=== PATIENT | female | born 2000 | race Caucasian/White ===

== ENCOUNTER 2023-05-10 11:14 | Emergency (ER) | payer OTHER, SELFPAY ==
[2023-05-10 11:18] VITALS: BP 124/78
--- NOTE | 2023-05-10 11:58 | ED.GENMED ---
History of Present Illness
<Deborah Rodriguez PA-C - Last Filed: 05/10/23 16:58>
General
Chief Complaint: Flank Pain
Source: patient and family
Exam Limitations: none
Time Seen by Provider: 05/10/23 11:53
Nursing documentation reviewed up to this point in time: agreed with
Travel History
Have you had any contact with someone who has COVID-19?: No
Do you have any symptoms of coronavirus? Fever > 100 degrees, chills, cough, shortness of breath, sore throat, loss of taste or smell, muscle aches, or headache?: No
History of Present Illness
History of Present Illness:
This is a 23-year-old female with a past medical history of asthma presenting emergency department today with right-sided flank pain, right-sided abdominal pain, and urinary retention since this morning. Patient states that when she woke up this
morning, she first noticed the pain. She states that the pain is worse with movement. She saw urgent care this morning who diagnosed her with a UTI and gave her a dose of Cipro and Toradol. However, they wanted her to report to the emergency
department for evaluation of potential kidney stone. She states that the flank pain radiates to her abdomen. Patient states that she has a strong family history of kidney stones. Patient denies hematuria, dysuria. She denies fevers at home.
Patient's last menstrual period was 2 weeks ago. Patient denies any vomiting, diarrhea, constipation. Patient has had an appendectomy in the past, but does have her gallbladder. Patient denies history of any other abdominal surgeries.
Past History
<Deborah Rodriguez PA-C - Last Filed: 05/10/23 16:58>
Past History
ED Past Medical History: None
ED Past Surgical History: None
Social History
Tobacco: Non-smoker
Review of Systems
<Deborah Rodriguez PA-C - Last Filed: 05/10/23 16:58>
Review of Systems
All Other Systems: ROS reviewed and negative except as documented in HPI and ROS
Phy Exam
<Deborah Rodriguez PA-C - Last Filed: 05/10/23 16:58>
Physical Exam
Physical Exam:
Vitals: Vital signs are stable
General: Patient is well-appearing in no acute distress
Skin: Skin is warm dry, no rashes or lesions
Cardiac: Regular rate and rhythm, no murmurs
Pulm: Normal respiratory effort, no wheezes, rales, rhonchi
Abdomen: Mild right upper quadrant abdominal tenderness. Positive CVA tenderness on the right. No abdominal distention, no organomegaly. No rebound tenderness.
Neuro: Patient is awake and alert, cranial nerves II through XII intact.
Course
<Deborah Rodriguez PA-C - Last Filed: 05/10/23 16:58>
Orders/Labs/Results
Orders:
Orders
05/10/23 12:38
0.9% Sodium Chloride 1000 ml [Nss] 1,000 ml IV BOLUS
Ondansetron Injectable [Zofran] 4 mg IV NOW STA
Test Result ONCE
05/10/23 12:39
CT Abd/pel Without Iv Or Oral Urgent
Comment:
Reason For Exam: right flank pain
05/10/23 12:42
Add On- LAB Urgent
Tests Added?: hcg
05/10/23 12:44
Complete Blood Count/With Diff Urgent
Comprehensive Metabolic Panel Urgent
05/10/23 12:48
Urinalysis Reflex To Culture Urgent
Date Specimen was Collected: 05/10/23
Time Specimen was Collected: 12:44
Urine Microscopic Reflex Cult Urgent
Urine,Hcg qualitative screen [HCG, Urine Qualitative Screen] Urgent
Date Specimen was Collected: 05/10/23
Time Specimen was Collected: 12:44
Urine Culture Urgent
NISHI Source: U
Specimen Description:
Date Specimen was Collected: 05/10/23
Time Specimen was Collected: 12:44
05/10/23 15:02
Urinalysis Reflex To Culture Urgent
Date Specimen was Collected: 05/10/23
Time Specimen was Collected: 14:52
Urine Microscopic Reflex Cult Urgent
Urine Culture Urgent
NISHI Source: U
Specimen Description:
Date Specimen was Collected: 05/10/23
Time Specimen was Collected: 14:52
Abnormal Lab Results
05/10/23 05/10/23 05/10/23
12:44 12:48 15:02
WBC 11.5 H 10^3/uL
(4.8-10.8)
Abs Immat Gran (auto) 0.1 H 10^3/uL
(0-0.05)
Absolute Neuts (auto) 9.1 H 10^3/uL
(1.4-6.5)
Neutrophils % 79.6 H %
(42.2-75.2)
Lymphocytes % 14.0 L %
(20.5-51.1)
Total Bilirubin 2.1 H mg/dl
(0.2-1.3)
Ur Occult Blood Reflex 2+ A
(Negative)
Urine Nitrite (Reflex) Positive A Positive A
(Negative) (Negative)
Urine Bilirubin 1+ A 3+ A
(Negative) (Negative)
Urine Urobilinogen 4+ A
(Neg - 1+)
Leukocyte Esterase Rfl 2+ A 2+ A
(Negative) (Negative)
Urine RBC 70-80 A /HPF
(0-2)
Urine WBC (Reflex) 16-20 A /HPF 11-15 A /HPF
(0-5) (0-5)
Urine Bacteria (Reflex) Moderate A
(Negative)
Urine Yeast Moderate A
(Negative)
05/10/23 12:44
05/10/23 12:44
Vital Signs
Initial and Last Documented VS:
Initial Vital Signs
Temp Pulse Resp BP Pulse Ox
98.1 F 66 18 124/78 99
05/10/23 11:18 05/10/23 11:18 05/10/23 11:18 05/10/23 11:18 05/10/23 11:18
Last Documented Vital Signs
Temp Pulse Resp BP Pulse Ox
98.1 F 66 18 100/60 99
05/10/23 11:18 05/10/23 11:18 05/10/23 11:18 05/10/23 13:00 05/10/23 13:30
<Michael Magallon MD - Last Filed: 05/11/23 10:10>
Orders/Labs/Results
Orders:
Orders
05/10/23 12:38
0.9% Sodium Chloride 1000 ml [Nss] 1,000 ml IV BOLUS
Ondansetron Injectable [Zofran] 4 mg IV NOW STA
Test Result ONCE
05/10/23 12:39
CT Abd/pel Without Iv Or Oral Urgent
Comment:
Reason For Exam: right flank pain
05/10/23 12:42
Add On- LAB Urgent
Tests Added?: hcg
05/10/23 12:44
Complete Blood Count/With Diff Urgent
Comprehensive Metabolic Panel Urgent
05/10/23 12:48
Urinalysis Reflex To Culture Urgent
Date Specimen was Collected: 05/10/23
Time Specimen was Collected: 12:44
Urine Microscopic Reflex Cult Urgent
Urine,Hcg qualitative screen [HCG, Urine Qualitative Screen] Urgent
Date Specimen was Collected: 05/10/23
Time Specimen was Collected: 12:44
Urine Culture Urgent
NISHI Source: U
Specimen Description:
Date Specimen was Collected: 05/10/23
Time Specimen was Collected: 12:44
05/10/23 15:02
Urinalysis Reflex To Culture Urgent
Date Specimen was Collected: 05/10/23
Time Specimen was Collected: 14:52
Urine Microscopic Reflex Cult Urgent
Urine Culture Urgent
NISHI Source: U
Specimen Description:
Date Specimen was Collected: 05/10/23
Time Specimen was Collected: 14:52
Abnormal Lab Results
05/10/23 05/10/23 05/10/23
12:44 12:48 15:02
WBC 11.5 H 10^3/uL
(4.8-10.8)
Abs Immat Gran (auto) 0.1 H 10^3/uL
(0-0.05)
Absolute Neuts (auto) 9.1 H 10^3/uL
(1.4-6.5)
Neutrophils % 79.6 H %
(42.2-75.2)
Lymphocytes % 14.0 L %
(20.5-51.1)
Total Bilirubin 2.1 H mg/dl
(0.2-1.3)
Ur Occult Blood Reflex 2+ A
(Negative)
Urine Nitrite (Reflex) Positive A Positive A
(Negative) (Negative)
Urine Bilirubin 1+ A 3+ A
(Negative) (Negative)
Urine Urobilinogen 4+ A
(Neg - 1+)
Leukocyte Esterase Rfl 2+ A 2+ A
(Negative) (Negative)
Urine RBC 70-80 A /HPF
(0-2)
Urine WBC (Reflex) 16-20 A /HPF 11-15 A /HPF
(0-5) (0-5)
Urine Bacteria (Reflex) Moderate A
(Negative)
Urine Yeast Moderate A
(Negative)
05/10/23 12:44
05/10/23 12:44
Vital Signs
Initial and Last Documented VS:
Initial Vital Signs
Temp Pulse Resp BP Pulse Ox
98.1 F 66 18 124/78 99
05/10/23 11:18 05/10/23 11:18 05/10/23 11:18 05/10/23 11:18 05/10/23 11:18
Last Documented Vital Signs
Temp Pulse Resp BP Pulse Ox
98.1 F 66 18 100/60 99
05/10/23 11:18 05/10/23 11:18 05/10/23 11:18 05/10/23 13:00 05/10/23 13:30
<WONG Reddy Last Filed: 05/10/23 16:58>
MDM/Problems Addressed
Differential Diagnosis Includes:
Differentials include pyelonephritis, nephrolithiasis, cholecystitis, acute cystitis
MDM/Problems Addressed:
Flank pain
Urinary retention

Will obtain CT abdomen pelvis without IV contrast, start IV fluids, Zofran, CBC, CMP, urine
Chronic conditions affecting care: Asthma
Acute Exacerbation and/or Progression of Chronic Illness:
n/a
<WONG Reddy Last Filed: 05/10/23 16:58>
*Pulse Oximetry
Patient hypoxic: no
*Critical Care Note
Total Time (30-74mins, 75-104mins- exclusive of procedures): Not Applicable
Data Reviewed
Review of Other/Old Records Reveals: Records (Reviewed ER physician documentation from 09/04/2020, reviewed ER physician at [facility] from 02/27/2014) and Discharge Summary (No recent hospitalizations)
Source: patient
Prescriptions/Medications Considered But Not Given:
Considered Toradol however patient received this at 11:15 am today, consider other pain control however is comfortable at this time.
<WONG Reddy Last Filed: 05/10/23 16:58>
Patient Management
Escalation/DeEscalation of care consider admission/obs:
23-year-old female with a past medical history of appendicitis, asthma presenting to the emergency department today with urinary urgency and right-sided flank pain x 1 day. She has never had anything like this before. She has a significant family
history of kidney stones. On exam, she has right-sided CVA tenderness, no abdominal tenderness. She was originally seen by urgent care and given a dose of Cipro, however sent here for evaluation of kidney stone. Her urinalysis reveals urinary
tract infection, and her CT revealed a 2 mm calcification at the right UVJ. Patient is well-appearing and afebrile. Spoke to Dr. Ross on-call via [facility] text, who, considering she is a well-appearing, recommends discharge with Flomax for trial
of passage, as well as antibiotic. Patient will call his office for an appointment on Friday. Patient will return emergency department for any concerns. Mom present with daughter who has a history of kidney stones, and is concerned that daughter
will have severe pain as the stone passes. Mom and daughter requesting something stronger for breakthrough pain should she need it as the stone passes. Urgent care sent patient home with some Toradol tablets. I advised patient to try to use her
Toradol for pain, and I said to send patient home with a few oxycodone tablets to only use for breakthrough pain, should her pain become severe. Discussed pros and cons of opioid medication, patient aware of risks, patient will only used if
necessary. Patient stable for discharge.
ED Attending Note
<Deborah Rodriguez PA-C - Last Filed: 05/10/23 16:58>
-
Portions of this chart may have been created with voice recognition software.� Occasional wrong word or��sound alike� substitutions may have occurred due to the inherent limitations of voice recognition software.
<Michael Magallon MD - Last Filed: 05/11/23 10:10>
ED Attending Note
Patient seen and examined by attending physician: Yes
ED Attending Note:
Patient presents to ED secondary to sudden onset of right flank pain along with urinary frequency starting this morning. Denies fever or chills. Denies vomiting. Denies trauma. Denies inability urinate. Denies dysuria. There is family history
of kidney stones, but patient herself has never had similar symptoms. Patient was evaluated urgent care center, where she was diagnosed with possible UTI, and was prescribed ciprofloxacin along with Toradol. Patient has taken Toradol tablet prior
to arrival, with mild relief in symptoms.
Physical Exam
General: no apparent distress, not acutely ill. afebrile
Head: nc/at. eomi
Neck: supple. no meningeal signs.
Abdomen: normal bowel sounds. not tender.
Neuro: alert and oriented. no focal neurological deficits
Skin: no rash
Psychiatric: well kept. interactive and cooperative
Extremities: no edema. no calf tenderness.
Pt states that her pain is tolerable at this point, after taking toradol tablet prior to arrival.
CT abd/pel report reviewed. Awaiting UA. Will speak with urology afterwards and determine appropriate disposition.
Discharge Plan
Departure
Patient Disposition: Home (Routine Discharge)
Date of Disposition: 05/10/23
Time of Disposition: 16:34
Patient with high blood pressure during this ER visit?: No
Condition: Good
Discharge Problem:
Kidney stone on right side
Instructions: Kidney Stones (DC), How to Strain Your Urine
Prescriptions:
New
ciprofloxacin HCl 500 mg tablet
500 mg PO BID Qty: 4 0RF
tamsulosin [Flomax] 0.4 mg capsule
0.4 mg PO DAILY Qty: 4 0RF
oxycodone 5 mg capsule
5 mg PO Q6H PRN (Reason: Pain) Qty: 5 0RF
No Action
cetirizine 10 MG tablet
10 mg PO DAILY
Referrals:
Jorge Cullen MD [Active] - Call in 1-3 days for appt
UNKNOWN - PT DOES,NOT KNOW [Family Provider] -
Activity Restrictions/Additional Instructions:
Please continue your ciprofloxacin per urgent care instructions. Please take 1 tablet every 12 hours for total of 5 days.
We have sent a medication called [employer] for pharmacy. Please take 1 tablet once daily until stone passage, please strain your urine.
Please use your Toradol from urgent care for pain control. For breakthrough pain, you may take 1 oxycodone tablet every 6 hours as needed for pain. PLEASE RESERVE THIS FOR SEVERE PAIN.
Please call urology on Friday for a follow up appointment.
Please return to the emergency department for any concerns.
Interventions
Interventions:
*Risk Screen - Suicide Last Done: 05/10/23 12:39
*General Assessment Last Done: 05/10/23 12:39
*Neglect/Abuse Screening Last Done: 05/10/23 12:39
ED- Fall Risk Assessment Last Done: 05/10/23 12:39
*ED COVID-19 Vaccine History Last Done: 05/10/23 12:39
*Nursing Disposition Last Done: 05/10/23 16:44
BW-Elhdtb-Onaejdnmnw Assessment Last Done: 05/10/23 12:39
ED-Female Genitourinary Assessment Last Done: 05/10/23 12:39
Discharge Date and Time
Discharge Date/Time: 05/10/23 16:45
[2023-05-10 12:39] VITALS: BMI 25.6
[2023-05-10 12:43] VITALS: BP 91/65
[2023-05-10] MEDS: ZOFRAN 4 MG IV (12:46)
[2023-05-10] MEDS: NSS 1000 IV (12:47)
[2023-05-10 12:52] LABS: % Basophils 0.8 % (0-2); % Eosinophils 1.2 % (0-6); % Immature Granulocytes 0.4 % (0-0.5); % Neutrophils 79.6 % (42.2-75.2); Absolute Basophils 0.1 10^3/uL (0-0.2); Absolute Eosinophils 0.1 10^3/uL (0-0.7); Absolute Immature Granulocytes 0.1 10^3/uL (0-0.05); Absolute Lymphocytes 1.6 10^3/uL (1.2-3.4); Absolute Monocytes 0.5 10^3/uL (0.1-0.6); Absolute Neutrophils 9.1 10^3/uL (1.4-6.5); Hematocrit 41.2 % (37.0-47.0); Hemoglobin 14.2 g/dL (12.0-16.0); Mean Corp Hgb Conc. 34.5 g/dL (33.0-37.0); Mean Corpuscular Volume 81.1 fL (81.0-99.0); Mean Platelet Volume 10.2 fL (7.4-10.4); Nucleated Red Blood Cells % 0 %; Platelet Count 321 10^3/uL (130-400); Red Blood Cell Count 5.08 10^6/uL (4.20-5.40); Red Cell Dist. Width 12.2 % (11.5-14.5); White Blood Cell Count 11.5 10^3/uL (4.8-10.8)
[2023-05-10 13:00] VITALS: BP 100/60
[2023-05-10 13:04] LABS: Urine Albumin Trace (Neg - Trace); Urine Bilirubin 1+ (Negative); Urine Character Slightly Cloudy (Clear); Urine Color Amber; Urine Glucose Negative (Negative); Urine Ketone Negative (Negative); Urine Leukocyte 2+ (Negative); Urine Nitrite Positive (Negative); Urine Occult Blood 2+ (Negative); Urine Specific Gravity 1.015 (<1.030); Urine Urobilinogen 1+ (Neg - 1+)
[2023-05-10 13:05] LABS: ALT (SGPT) 22 U/L (0-35); AST (SGOT) 24 U/L (14-36); Albumin 4.9 g/dl (3.5-5.0); Alkaline Phosphatase 65 U/L (38-126); Blood Urea Nitrogen 15 mg/dl (7-17); Calcium 9.7 mg/dl (8.4-10.2); Carbon Dioxide 23 mmol/L (22-30); Chloride 107 mmol/L (98-107); Estimated Creatinine Clearance 115 ml/min; Glucose 98 mg/dl (70-99); Sodium 138 mmol/L (135-145); Total Bilirubin 2.1 mg/dl (0.2-1.3); Total Protein 7.9 g/dl (6.3-8.2); eGFR > 60.00
[2023-05-10 13:08] LABS: HCG, Urine Qualitative Screen Negative
[2023-05-10 13:37] LABS: Urine Mucus Few; Urine Squamous Cell >30 /LPF (Few)
[2023-05-10 13:38] LABS: Urine Bacteria Moderate (Negative); Urine Red Blood Cell 70-80 /HPF (0-2); Urine White Cell 16-20 /HPF (0-5); Urine Yeast Moderate (Negative)
[2023-05-10 15:14] LABS: Urine Albumin Negative (Neg - Trace); Urine Bilirubin 3+ (Negative); Urine Character Clear (Clear); Urine Glucose Negative (Negative); Urine Ketone Negative (Negative); Urine Leukocyte 2+ (Negative); Urine Nitrite Positive (Negative); Urine Occult Blood Negative (Negative); Urine Urobilinogen 4+ (Neg - 1+)
[2023-05-10 15:16] LABS: Urine Color Orange
[2023-05-10 15:39] LABS: Urine Squamous Cell 16-20 /LPF (Few)
[2023-05-10 15:40] LABS: Urine Red Blood Cell 0-2 /HPF (0-2)
== END 2023-05-10 16:45 | disposition home or self-care (01) ==
LOC: EMR 11:14
PROVIDERS: Physician Assistant; EMERGENCY PHYSICIAN Emergency Medicine
DX: N20.0 Calculus of kidney (principal); J45.909 Unspecified asthma, uncomplicated; Z90.49 Acquired absence of other specified parts of digestive tract
CPT/HCPCS: 99284; 96374; 96361; 74176; 80053; 81003; 81015; 81025; 85025; 87086

== ENCOUNTER 2023-05-11 12:15 | Inpatient (IN) | payer OTHER, SELFPAY ==
[2023-05-11] MEDS: DILAUDID 0.5 MG IV ×3 (09:08→17:18)
[2023-05-11] MEDS: NSS 1000 IV (09:09)
[2023-05-11] MEDS: ZOFRAN 4 MG IV ×2 (09:09→10:56)
[2023-05-11 09:29] LABS: % Basophils 0.3 % (0-2); % Eosinophils 0.1 % (0-6); % Immature Granulocytes 0.4 % (0-0.5); % Lymphocytes 7.1 % (20.5-51.1); % Monocytes 3.5 % (1.7-9.3); % Neutrophils 88.6 % (42.2-75.2); Absolute Basophils 0.1 10^3/uL (0-0.2); Absolute Immature Granulocytes 0.1 10^3/uL (0-0.05); Absolute Lymphocytes 1.1 10^3/uL (1.2-3.4); Absolute Monocytes 0.5 10^3/uL (0.1-0.6); Absolute Neutrophils 13.4 10^3/uL (1.4-6.5); Hematocrit 38.4 % (37.0-47.0); Hemoglobin 13.2 g/dL (12.0-16.0); Mean Corp Hgb Conc. 34.4 g/dL (33.0-37.0); Mean Corpuscular Hgb 28.1 pg (27.0-31.0); Mean Corpuscular Volume 81.7 fL (81.0-99.0); Mean Platelet Volume 10.5 fL (7.4-10.4); Nucleated Red Blood Cells % 0 %; Platelet Count 305 10^3/uL (130-400); White Blood Cell Count 15.1 10^3/uL (4.8-10.8)
[2023-05-11 09:32] LABS: Urine Albumin Trace (Neg - Trace); Urine Bilirubin 3+ (Negative); Urine Character Clear (Clear); Urine Glucose Negative (Negative); Urine Ketone Negative (Negative); Urine Leukocyte 2+ (Negative); Urine Nitrite Positive (Negative); Urine Occult Blood 1+ (Negative); Urine Specific Gravity 1.025 (<1.030); Urine Urobilinogen 4+ (Neg - 1+)
[2023-05-11 09:37] LABS: Urine Color Orange
[2023-05-11 09:40] LABS: Urine Bacteria Moderate (Negative); Urine Squamous Cell >30 /LPF (Few); Urine White Cell 21-25 /HPF (0-5)
[2023-05-11 09:41] LABS: ALT (SGPT) 22 U/L (0-35); AST (SGOT) 26 U/L (14-36); Albumin 4.7 g/dl (3.5-5.0); Alkaline Phosphatase 61 U/L (38-126); Blood Urea Nitrogen 18 mg/dl (7-17); Calcium 9.5 mg/dl (8.4-10.2); Carbon Dioxide 22 mmol/L (22-30); Chloride 107 mmol/L (98-107); Glucose 115 mg/dl (70-99); Potassium 4.3 mmol/L (3.5-5.1); Sodium 136 mmol/L (135-145); Total Bilirubin 2.3 mg/dl (0.2-1.3); Total Protein 7.5 g/dl (6.3-8.2); eGFR > 60.00
[2023-05-11 09:41] LABS: Urine Yeast Few (Negative)
--- NOTE | 2023-05-11 09:45 | ED.GENMED ---
History of Present Illness
<Ashleigh Jose PA-C - Last Filed: 05/11/23 10:17>
General
Chief Complaint: Flank Pain
Source: patient
Exam Limitations: none
Time Seen by Provider: 05/11/23 08:57
Nursing documentation reviewed up to this point in time: agreed with
History of Present Illness
History of Present Illness:
23-year-old female with no significant past medical history presents for right flank pain
sudden onset of right sided pain with dysuria and frequency and urgency yesterday
went to and was told she had UTI, but told to come to ED for eval because of pain.� she got oral toradol and cipro from urgent care
here she had labs showing cr normal, ua nitrite pos but contaminated, CT showed distal 2 mm right UVJ stone
pt went home with oral oxycodone, flomax
she took 3 total cipro, 2 doses of toradol, 2 doses of oxy (4amd and 530am) and pain is not controlled
she also used pyridium and flomax
pt has had some chlils and nauesa
no vomiting.�
pain 11/17
<Michael Magallon MD - Last Filed: 05/11/23 10:23>
Travel History
Have you had any contact with someone who has COVID-19?: No
Do you have any symptoms of coronavirus? Fever > 100 degrees, chills, cough, shortness of breath, sore throat, loss of taste or smell, muscle aches, or headache?: No
<Michael Magallon MD - Last Filed: 05/11/23 10:23>
Past History
ED Past Medical History: None
ED Past Surgical History: None
Social History
Tobacco: Non-smoker
Review of Systems
<Ashleigh Jose PA-C - Last Filed: 05/11/23 10:17>
Review of Systems
Allergies reviewed?: Yes
All Other Systems: Not applicable
Phy Exam
<Ashleigh Jose PA-C - Last Filed: 05/11/23 10:17>
Physical Exam
Physical Exam:
GENERAL: Alert, uncomfortable
Neck: supple
CARDIAC: Regular rate and rhythm .
LUNGS: Clear breath sounds bilaterally, no acute respiratory distress, no wheezes/rales/rhonchi
ABDOMEN: Soft, normal bowel sounds, nondistended, mild RLQ tenderness, no guarding, no rebound, neg mills's
No right CVA tenderness
NEUROLOGICAL: Alert and oriented, no focal neuro deficits
SKIN: Warm and dry, skin intact.
PSYCH: Normal and appropriate interaction.
Course
<Ashleigh Jose PA-C - Last Filed: 05/11/23 10:17>
Orders/Labs/Results
Orders:
Orders
05/11/23 08:58
HYDROmorphone [Dilaudid] 1 mg .ROUTE .STK-MED ONE
05/11/23 08:59
Ondansetron Injectable [Zofran] 4 mg .ROUTE .STK-MED ONE
05/11/23 09:05
Ondansetron Injectable [Zofran] 4 mg IV NOW STA
05/11/23 09:06
HYDROmorphone [Dilaudid] 0.5 mg IV NOW STA
05/11/23 09:07
0.9% Sodium Chloride 1000 ml [Nss] 1,000 ml IV BOLUS
05/11/23 09:17
Urinalysis Reflex To Culture Urgent
Date Specimen was Collected: 05/11/23
Time Specimen was Collected: 09:14
Urine Microscopic Reflex Cult Urgent
Urine Culture Urgent
NISHI Source: U
Specimen Description:
Date Specimen was Collected: 05/11/23
Time Specimen was Collected: 09:14
05/11/23 09:19
Complete Blood Count/With Diff Urgent
Comprehensive Metabolic Panel Urgent
05/11/23 09:30
CefTRIAXone [Rocephin] 1,000 mg IV NOW STA
05/11/23 09:46
Ketorolac [Toradol] 15 mg IV NOW STA
05/11/23 09:47
Gentamicin 100 mg/50 ml [Gentamicin] 100 mg in 50 ml IV NOW
05/11/23 09:52
HYDROmorphone [Dilaudid] 0.5 mg IV NOW STA
Abnormal Lab Results
05/11/23 05/11/23
09:17 09:19
WBC 15.1 H 10^3/uL
(4.8-10.8)
MPV 10.5 H fL
(7.4-10.4)
Abs Immat Gran (auto) 0.1 H 10^3/uL
(0-0.05)
Absolute Neuts (auto) 13.4 H 10^3/uL
(1.4-6.5)
Absolute Lymphs (auto) 1.1 L 10^3/uL
(1.2-3.4)
Neutrophils % 88.6 H %
(42.2-75.2)
Lymphocytes % 7.1 L %
(20.5-51.1)
BUN 18 H mg/dl
(7-17)
Creatinine 1.1 H mg/dL
(0.6-1.0)
Glucose 115 H mg/dl
(70-99)
Total Bilirubin 2.3 H mg/dl
(0.2-1.3)
Ur Occult Blood Reflex 1+ A
(Negative)
Urine Nitrite (Reflex) Positive A
(Negative)
Urine Bilirubin 3+ A
(Negative)
Urine Urobilinogen 4+ A
(Neg - 1+)
Leukocyte Esterase Rfl 2+ A
(Negative)
Urine RBC 3-6 A /HPF
(0-2)
Urine WBC (Reflex) 21-25 A /HPF
(0-5)
Urine Bacteria (Reflex) Moderate A
(Negative)
Urine Yeast Few A
(Negative)
05/11/23 09:19
05/11/23 09:19
Vital Signs
Initial and Last Documented VS:
Initial Vital Signs
Temp Pulse Resp BP Pulse Ox
98.2 F 70 16 128/87 97
05/11/23 08:18 05/11/23 08:18 05/11/23 08:18 05/11/23 08:18 05/11/23 08:18
Last Documented Vital Signs
Temp Pulse Resp BP Pulse Ox
98.2 F 70 16 128/87 97
05/11/23 08:18 05/11/23 08:18 05/11/23 08:18 05/11/23 08:18 05/11/23 08:18
<Michael Magallon MD - Last Filed: 05/11/23 10:23>
Orders/Labs/Results
Orders:
Orders
05/11/23 08:58
HYDROmorphone [Dilaudid] 1 mg .ROUTE .STK-MED ONE
05/11/23 08:59
Ondansetron Injectable [Zofran] 4 mg .ROUTE .STK-MED ONE
05/11/23 09:05
Ondansetron Injectable [Zofran] 4 mg IV NOW STA
05/11/23 09:06
HYDROmorphone [Dilaudid] 0.5 mg IV NOW STA
05/11/23 09:07
0.9% Sodium Chloride 1000 ml [Nss] 1,000 ml IV BOLUS
05/11/23 09:17
Urinalysis Reflex To Culture Urgent
Date Specimen was Collected: 05/11/23
Time Specimen was Collected: 09:14
Urine Microscopic Reflex Cult Urgent
Urine Culture Urgent
NISHI Source: U
Specimen Description:
Date Specimen was Collected: 05/11/23
Time Specimen was Collected: :14
05/11/23 09:19
Complete Blood Count/With Diff Urgent
Comprehensive Metabolic Panel Urgent
05/11/23 09:30
CefTRIAXone [Rocephin] 1,000 mg IV NOW STA
05/11/23 09:46
Ketorolac [Toradol] 15 mg IV NOW STA
05/11/23 09:47
Gentamicin 100 mg/50 ml [Gentamicin] 100 mg in 50 ml IV NOW
05/11/23 09:52
HYDROmorphone [Dilaudid] 0.5 mg IV NOW STA
Abnormal Lab Results
05/11/23 05/11/23
09:17 09:19
WBC 15.1 H 10^3/uL
(4.8-10.8)
MPV 10.5 H fL
(7.4-10.4)
Abs Immat Gran (auto) 0.1 H 10^3/uL
(0-0.05)
Absolute Neuts (auto) 13.4 H 10^3/uL
(1.4-6.5)
Absolute Lymphs (auto) 1.1 L 10^3/uL
(1.2-3.4)
Neutrophils % 88.6 H %
(42.2-75.2)
Lymphocytes % 7.1 L %
(20.5-51.1)
BUN 18 H mg/dl
(7-17)
Creatinine 1.1 H mg/dL
(0.6-1.0)
Glucose 115 H mg/dl
(70-99)
Total Bilirubin 2.3 H mg/dl
(0.2-1.3)
Ur Occult Blood Reflex 1+ A
(Negative)
Urine Nitrite (Reflex) Positive A
(Negative)
Urine Bilirubin 3+ A
(Negative)
Urine Urobilinogen 4+ A
(Neg - 1+)
Leukocyte Esterase Rfl 2+ A
(Negative)
Urine RBC 3-6 A /HPF
(0-2)
Urine WBC (Reflex) 21-25 A /HPF
(0-5)
Urine Bacteria (Reflex) Moderate A
(Negative)
Urine Yeast Few A
(Negative)
05/11/23 09:19
05/11/23 09:19
Vital Signs
Initial and Last Documented VS:
Initial Vital Signs
Temp Pulse Resp BP Pulse Ox
98.2 F 70 16 128/87 97
05/11/23 08:18 05/11/23 08:18 05/11/23 08:18 05/11/23 08:18 05/11/23 08:18
Last Documented Vital Signs
Temp Pulse Resp BP Pulse Ox
98.2 F 70 16 128/87 97
05/11/23 08:18 05/11/23 08:18 05/11/23 08:18 05/11/23 08:18 05/11/23 08:18
<Ashleigh Jose PA-C - Last Filed: 05/11/23 10:17>
MDM/Problems Addressed
Differential Diagnosis Includes:
Kidney stone, intractable pain, bilateral
MDM/Problems Addressed:
23-year-old female presents for the second time in 2 days for a right-sided kidney stone, 2 mm but patient is also having urinary tract infection symptoms, had a nitrate positive urine, subjective fevers and chills overnight. Patient's pain is not
controlled with Toradol, Pyridium and oxycodone.
On exam she has a temperature of 99, she looks nontoxic, she is mildly uncomfortable but nontender, her white count went up to 15 with a left shift, her creatinine went from 1.7-1.1
This case was discussed with the urologist who is aware of her yesterday.
His recommendation was to admit, take the patient to the OR for stent and possible stone extraction as well as keep her overnight for IV antibiotics. This was discussed with both patient and mom, mom had previously requested a different urologist
for herself than Dr. Demarco. but the patient is completely agreeable to keeping Dr. Demarco as her treating urologist today. She is agreeable to stay for the procedure. Dr. demarco recommended an IV dose of gentamicin and he will likely take her to
the operating room within the next couple of hours. Patient required 2 doses of Dilaudid for pain control
<Ashleigh Jose PA-C - Last Filed: 05/11/23 10:17>
*Critical Care Note
Total Time (30-74mins, 75-104mins- exclusive of procedures): Not Applicable
<Michael Magallon MD - Last Filed: 05/11/23 10:23>
ED Attending Note
Patient seen and examined by attending physician: Yes
ED Attending Note:
Patient patient evaluated in ED yesterday and discharged home with diagnosis of obstructing renal stone along with UTI, returns to ED secondary to worsening pain despite taking her medication at home. Denies fever or chills. Reports nausea
sensation without vomiting. Denies trauma. Denies inability to urinate, but reports urinary frequency.
Physical Exam
General: mild painful distress, not acutely ill. afebrile
Head: nc/at. eomi
Neck: supple. no meningeal signs.
Heart: s1/s2 regular rate and rhythm, no murmur. equal radial pulses.
Lungs: no acute respiratory distress. clear bilaterally
Abdomen: normal bowel sounds. not tender.
Neuro: alert and oriented. no focal neurological deficits
Skin: no rash
Psychiatric: well kept. interactive and cooperative
Extremities: no edema. no calf tenderness.
Discussed with (urology) - will proceed to OR. Pt remains hemodynamically stable during observation.
-
Portions of this chart may have been created with voice recognition software.� Occasional wrong word or��sound alike� substitutions may have occurred due to the inherent limitations of voice recognition software.
Discharge Plan
Departure
Patient Disposition: Admit
Date of Disposition: 05/11/23
Time of Disposition: 09:52
Admit to: Med/Surg
Admit to doctor: dav
Presentation/result/management discussed w/ accepting MD/DO: dav
Condition: Fair
Covid-19: Not Applicable
Discharge Problem:
UTI (urinary tract infection), Kidney stone
Prescriptions:
No Action
cetirizine 10 MG tablet
10 mg PO DAILY
ciprofloxacin HCl 500 mg tablet
500 mg PO BID Qty: 4 0RF
tamsulosin [Flomax] 0.4 mg capsule
0.4 mg PO DAILY Qty: 4 0RF
oxycodone 5 mg capsule
5 mg PO Q6H PRN (Reason: Pain) Qty: 5 0RF
Referrals:
UNKNOWN - PT DOES,NOT KNOW [Family Provider] -
Interventions
Interventions:
*Risk Screen - Suicide Last Done: 05/11/23 08:18
*Neglect/Abuse Screening Last Done: 05/11/23 08:18
*ED COVID-19 Vaccine History Last Done: 05/11/23 08:18
--- NOTE | 2023-05-11 11:05 | HP.FOC2 ---
Focused History & Physical
Chief Complaint
HPI:
Chief Complaint:
flank pain
HPI / Indication for Planned Procedure:
no prior gu history
2nd er visit for right renal colic for pain
does have elevation of wbc and had + ua
has been on cipro
some chills and nausea
Relevant Past Medical History: Negative
Relevant Social History: Negative
Relevant Family History: Negative
Relevant Past Surgical History: Positive for (appendectomy and wisdom tooth extraction and shoulder surgery)
Review of Systems
Review of Pertinent Systems: All Systems Negative Except for the Following Positives (+ chills- + nausea)
Medication
See Medication form for detailed medications: Yes
Medication List (including Herbals & OTC):
cetirizine 10 mg tablet 10 mg PO DAILY 02/26/14
ciprofloxacin HCl 500 mg tablet 500 mg PO BID #4 tabs 05/10/23
oxycodone 5 mg capsule 5 mg PO Q6H PRN Pain #5 caps 05/10/23
tamsulosin 0.4 mg capsule (Flomax) 0.4 mg PO DAILY #4 caps 05/10/23
Medications Reviewed: Yes
Allergies and Reactions
Patient has Allergies: Yes
Noted Allergies and Reactions:
Allergy/AdvReac Type Severity Reaction Status Date / Time
Sulfa (Sulfonamide Allergy Pharmacy Verified 05/10/23 11:19
Antibiotics) to Review
Pertinent Physical Exam
All Other Systems: Negative
Head/Neck: Normal
Lungs: Normal
Heart: Normal
Abdomen: Normal
Extremities: Normal
Neurological: Normal
Diagnosis / Assessment
stone with unrelenting colic and ? UTI
Plan / Procedure
reviewed with pt and mother and anesthesia
to OR for right ureteroscopy/laser litho and stent- possible stent only if sig pyuira
risks, benefits, alternatives and disabilities reviewed including but not limited to bleeding, infx and sepsis, cv event, neuroproaxia, gu injury, need for secondary procedures, stent disability and pain
Anesthesia/Sedation to be done by Anesthesia Provider: Yes
--- NOTE | 2023-05-11 11:52 | W.IMMPOSTOP ---
Surgical Immed Post Op Note
-
Primary Surgeon:
dav
Assisting Surgeon:
none
Pre-op Diagnosis:
right ureteral stone
Post-op Diagnosis:
same
Procedure Performed:
cysto/right ureteroscopy/laser litho and stent
Anesthesia Type:
gen
Specimen / Cultures:
stone
Estimated Blood Loss:
2cc
Complications:
none
Operative Findings:
no evid fo sig infx
stone lasered and removed
stent placed
to pacu in stable condition
[2023-05-11] MEDS: DILAUDID 0.25 MG IV ×2 (12:31→12:45)
[2023-05-11] MEDS: NSS with KCL 20 MEQ 1000 IV (12:53)
[2023-05-11] MEDS: TYLENOL 650 MG PO ×2 (14:10→22:47)
[2023-05-11] MEDS: ROCEPHIN 1000 MG IV (14:11)
[2023-05-11] MEDS: STERILE WATER FOR INJECTION 10 ML IV (14:11)
[2023-05-11] MEDS: Pyridium 100 MG PO ×2 (15:22→23:56)
[2023-05-11] MEDS: TORADOL 30 MG IV (20:24)
--- NOTE | 2023-05-11 22:30 | PTCARENOTE ---
Addendum entered by Kenna Karimi RN 05/12/23 03:52:
Patient reports decrease in the tingling pain. She states that 'it is almost completely gone' and would rate it a 1/10.
Original Note:
Patient reports tingling pain in all four extremities. + pulses, <2 seconds cap refill. Patient reports extremities being swollen. +1 b/l pedal edema and +1 to right upper extremity. Receiving NS with 20 meq K at 100 ml/hr in R AC. Pt states
increase of pain/tingling when touched or with movement. Notified CANDY DIPPER. Assessed at bedside. Ordered 100mg PO Gabapentin, vascular checks, and labs. Gabapentin given. See MAR. Patient has no further complaints at this time. Resting in bed with call
stroud in reach.
--- NOTE | 2023-05-11 22:41 | W.PN.UPDATE ---
Update Note
Progress Note Update
Nursing voiced concern that patient reported feeling numbness and tingling B/L upper and lower extremities. Patient evaluated. Reports she feels puffy and tight in both her arms, IV fluids maintained on RUE,no infiltration noted, no edema noted,
Reports numbness and tingling B/L upper and lower extremities, worsened with movement of toes and fingers +pulses upper lower extremities, cap refill<3seconds, 5/5 Upper/Lower extremities, warmth to touch, no skin discoloration, skin intact. Advised
likely due to the compression of nerves
This INFORMATION SECURITY ARCHITECT reached out to Waiter Waitress recreation coordinator, Advised possible reasons of compression of nerves or electrolyte imbalances. At present will order BMP, Gabapentin 100mg PO, Vascular checks [id number]
patient's mom updated.
[2023-05-11] MEDS: NEURONTIN 100 MG PO (22:45)
[2023-05-11 23:53] LABS: Blood Urea Nitrogen 13 mg/dl (7-17); Calcium 8.9 mg/dl (8.4-10.2); Carbon Dioxide 23 mmol/L (22-30); Chloride 108 mmol/L (98-107); Glucose 153 mg/dl (70-99); Potassium 4.6 mmol/L (3.5-5.1); Sodium 134 mmol/L (135-145); eGFR > 60.00
[2023-05-12] MEDS: NSS with KCL 20 MEQ 1000 IV (00:02)
[2023-05-12] MEDS: TYLENOL 650 MG PO (02:53)
[2023-05-12] MEDS: TORADOL 30 MG IV ×2 (03:56→12:21)
[2023-05-12 04:54] LABS: Hematocrit 33.6 % (37.0-47.0); Hemoglobin 11.6 g/dL (12.0-16.0); Mean Corp Hgb Conc. 34.5 g/dL (33.0-37.0); Mean Corpuscular Hgb 28.4 pg (27.0-31.0); Mean Corpuscular Volume 82.2 fL (81.0-99.0); Mean Platelet Volume 10.6 fL (7.4-10.4); Platelet Count 264 10^3/uL (130-400); Red Blood Cell Count 4.09 10^6/uL (4.20-5.40); Red Cell Dist. Width 12.3 % (11.5-14.5); White Blood Cell Count 14.7 10^3/uL (4.8-10.8)
[2023-05-12 05:21] LABS: Blood Urea Nitrogen 11 mg/dl (7-17); Calcium 8.6 mg/dl (8.4-10.2); Carbon Dioxide 21 mmol/L (22-30); Chloride 111 mmol/L (98-107); Glucose 110 mg/dl (70-99); Potassium 4.2 mmol/L (3.5-5.1); Sodium 134 mmol/L (135-145); eGFR > 60.00
--- NOTE | 2023-05-12 07:35 | W.PN.URO.CBU ---
Today's Communication / Plan
-
uoob
regular diet
continue rocephin and await ucx result
neuro exams
Assessment / Plan
-
s/p right ureteroscopy/laser litho and stent for stone
suspected UTI
acute neuropathic pain- ? etiology
from gu standpoint- pt stable
will continue rocephin- await ucx results prior to discharge
in terms of pain last night- is improved- but ? etiology- no evid of vasc compromise/unusual for neuropraxia given symmetric nature and time of onset- no obvious med effect- will observe today- if does not resolve- med/neuro consult
will re-eval later today
Diagnosis
-
Date of Service: May 12, 2023
-
Patient Diagnosis:
stone
acute hands and feet pain
suspected UTI
Post Op Day:
right ureteroscopy/laser litho and stent 05/10
Subjective
-
begining at 5pm yesterday- at least 4 hrs after surgery- pt developed progressing tingling/pain in both hands and feet
was symmetric- no fevers/neuro and vasc exam normal/neuro non-focal
labs were stable/normal
no obvious correlation with medical office supervisor
got one dose of gabapentin- feels much better now
no fevers
wbc trending down
ucx's- pending- on rocephin
Objective
-
Vital Signs
Temp Pulse Resp BP Pulse Ox
99.1 F 86 16 102/56 96
05/12/23 03:24 05/12/23 03:24 05/12/23 03:24 05/12/23 03:24 05/12/23 03:24
Intake and Output
05/11/23 05/12/23 05/13/23
06:59 06:59 06:59
Intake Total 1909
Balance 1909
Intake:
Oral fluids 1659
IV fluids (Total) 250 / 250
nomrosol 250 / 250
Other:
Number of approximated SMALL 1
amounts of urine
Number of approximated MODERATE 2
amounts of urine
Number of approximated LARGE 1
amounts of urine
Laboratory Results
05/12/23 04:34
05/12/23 04:34
Review of Systems
-
Constitutional: Fatigue
Respiratory: No Symptoms
Cardiac: No Symptoms
Abdomen/GI: No Symptoms
: Frequency
Musculoskeletal: No Symptoms
Skin: No Symptoms
Neurological: Other (see note)
Physical Exam
-
General - well developed, well nourished, no acute distress
Abdomen - soft, non-tender
Skin - warm & dry with no rash
Neuro - AOx3, no motor deficits
Extremities - no clubbing, no cyanosis, no edema, well vascularized
[2023-05-12] MEDS: ZYRTEC 10 MG PO (07:51)
[2023-05-12] MEDS: Pyridium 100 MG PO (07:51)
--- NOTE | 2023-05-12 13:12 | CM ---
s/p right ureteroscopy/laser litho and stent for stone. ? UTI. Discharge plan of care: Home with no needs. Patient will stay with her parents after discharge.
--- NOTE | 2023-05-12 13:15 | CM ---
Initial assessment completed with patient who lives alone in a 2 story home with basement, B/B on 2nd floor and 1/2 bath on 1st, no steps to enter, No DME or O2, no services, is independent and drives. No AD or living will, Pharmacy is [facility] in
[place], No PCP. Anticipate Home with no additional skilled services.
--- NOTE | 2023-05-12 13:17 | W.PN.UPDATE ---
Update Note
Progress Note Update
spoke to patient
she feels fine with no neuro sx's
no fevers
ucx- contamination
pt would like to be discharged
reviewed instructions
will send home today on cefdinir
call to schedule outpt stent removal
--- NOTE | 2023-05-12 14:21 | CM ---
Patient has been medically cleared for discharge to home with no additional skilled services. Patient has arranged for transport home.
[2023-05-12] MEDS: STERILE WATER FOR INJECTION 10 ML IV (14:29)
[2023-05-12] MEDS: ROCEPHIN 1000 MG IV (14:29)
[2023-05-15 12:39] LABS: Stone Analysis Mass 4 mg
== END 2023-05-12 15:04 | disposition home or self-care (01) | DRG 660 ==
LOC: 2 NORTH 12:15
PROVIDERS: Nurse Practitioner Gerontology; Physician Assistant; ADMITTING PHYSICIAN Specialist; EMERGENCY PHYSICIAN Emergency Medicine
PROC: 0TC68ZZ Extirpation of Matter from Right Ureter, Via Natural or Artificial Opening Endoscopic (ICD-10-PCS; 2023-05-11)
PROC: 0T768DZ Dilation of Right Ureter with Intraluminal Device, Via Natural or Artificial Opening Endoscopic (ICD-10-PCS; 2023-05-11)
DX: N20.2 Calculus of kidney with calculus of ureter (principal); N39.0 Urinary tract infection, site not specified
CPT/HCPCS: 74018; 76000; 80048; 80053; 81003; 81015; 82365; 85025; 85027; 87086; 96361; 96374; 96375; 96376; 99285; C1769; C2617; J1580

== ENCOUNTER → 2023-12-05 12:59 | Outpatient (REF) | payer OTHER, SELFPAY | LOC: CLAB 12:59 | PROVIDERS: ATTENDING PHYSICIAN Specialist | DX: N39.0 Urinary tract infection, site not specified (principal) | CPT/HCPCS: 87086 ==

== ENCOUNTER → 2023-12-07 13:39 | Day surgery (SDC) | payer OTHER, SELFPAY ==
[2023-12-07] VITALS (8 sets, daily range): BP systolic 99–138; BP diastolic 44–93; BMI 27.6
[2023-12-07] MEDS: NSS 1000 IV (11:41)
[2023-12-07] MEDS: TORADOL 15 MG IV (11:46)
[2023-12-07] MEDS: DILAUDID 0.5 MG IV (11:49)
--- NOTE | 2023-12-07 11:49 | ED.GENMED ---
History of Present Illness
General
Chief Complaint: Flank Pain
Source: patient and family (Mother)
Time Seen by Provider: 12/07/23 11:13
History of Present Illness
History of Present Illness:
23-year-old female left flank pain started 3 to 4 days ago. Saw urology days ago. Has been taking tramadol. Ongoing pain is progressing. No fever or chills. Some mild urinary frequency. History of kidney stones. Feels similar.
Past History
Past History
ED Past Medical History: Other (Kidney stones/psoriasis)
ED Past Surgical History: Orthopedic and Urological
Social History
Tobacco: Non-smoker
Review of Systems
Review of Systems
All Other Systems: Not applicable
Constitutional: Denies fever or chills
Phy Exam
Physical Exam
Physical Exam:
GENERAL: Alert and oriented in no apparent distress. But appears uncomfortable at times.
EYE: Orbits normal.
NECK: Supple
CARDIAC: Regular rate and rhythm without any obvious murmurs.
LUNGS: Clear breath sounds,normal
ABDOMEN: Soft, without focal tenderness or distention. No CVA tenderness
NEUROLOGICAL: Alert and oriented , grossly non-focal
SKIN: Warm and dry, no rash or lesion, no discoloration, skin intact.
MUSCULOSKELETAL: No edema,no deformity.Good color
PSYCH: Normal and appropriate interaction.
Course
Orders/Labs/Results
Orders:
Orders
12/07/23 11:32
CT Abd/pel Without Iv Or Oral Urgent
Comment:
Reason For Exam: Left flank pain. History of stones
IV Insert/Care/Rem.- Treatment PRN
0.9% Sodium Chloride 1000 ml [Nss] 1,000 ml IV BOLUS
Ketorolac [Toradol] 15 mg IV NOW STA
Ondansetron Injectable [Zofran] 4 mg IV NOW STA
Test Result ONCE
12/07/23 11:42
Basic Metabolic Panel Urgent
Complete Blood Count/With Diff Urgent
HCG, Serum Qualitative Screen Urgent
12/07/23 11:48
HYDROmorphone [Dilaudid] 0.5 mg .ROUTE .STK-MED ONE
HYDROmorphone [Dilaudid] 0.5 mg IV NOW STA
12/07/23 12:22
Acetaminophen 1000MG/100Ml [Ofirmev] 1,000 mg in 100 ml IV ONCE
Acetaminophen IV Indication:: ED Narcotic Naive Pt-ONCE
12/07/23 12:23
Acetaminophen 1000MG/100Ml [Ofirmev] 1,000 mg in 100 ml .ROUTE .STK-MED
12/07/23 12:49
LevoFLOXacin 500 MG/100 ML [Levaquin] 500 mg in 100 ml IV NOW
12/07/23 13:11
Fentanyl Citrate/Pf [Sublimaze] 100 mcg .ROUTE .STK-MED ONE
Lidocaine HCl/Pf [Xylocaine-Mpf 1% Vial] 50 mg .ROUTE .STK-MED ONE
Midazolam HCl [Versed] 2 mg .ROUTE .STK-MED ONE
Ondansetron Injectable [Zofran] 4 mg .ROUTE .STK-MED ONE
Propofol [Diprivan] 20 ml .ROUTE .STK-MED
12/07/23 13:16
UA Reflex to Culture [Urinalysis Reflex To Culture] Urgent
Date Specimen was Collected: 12/07/23
Time Specimen was Collected: 11:09
Urine Microscopic Reflex Cult Urgent
Urine Culture Urgent
NISHI Source: U
Specimen Description:
Date Specimen was Collected: 12/07/23
Time Specimen was Collected: 11:09
12/07/23 13:19
HYDROmorphone [Dilaudid] 0.25 mg IV PACU-Q5MPRN PRN
HYDROmorphone [Dilaudid] 0.5 mg IV PACU-Q5MPRN PRN
Ondansetron Injectable [Zofran] 4 mg IV PACU-ONCEPRN PRN
Prochlorperazine [Compazine] 5 mg IV PACU-ONCEPRN PRN
Notify MD As Directed
Notify physician if: for SDS patients with known or suspected sleep obstructive sleep apnea, monitor in the
PACU.
Notify MD for any apneic/desaturation episodes
O2 Therapy [RESP] Urgent
Titrate/Wean O2 to maintain O2 sat greater than (%): 92
Special Instructions: -Provide supplemental oxygen to achieve O2 sat of 92% or greater.
-After 15 min, may wean O2 and discontinue if patient is able to maintain O2 sat of 92%
or greater during recovery period.
If patient is a discharge home, without oxygen therapy, notify anestheiologist if
unable to maintain O2 SAT of 92% or greater on room air for MD clearance.
12/07/23 13:30
Normosol (Mult Electrolytes) [Normosol-R/Plasmalyte-A] 1,000 ml IV PER PROTOCOL
12/07/23 14:00
CR Abdomen - 1 View Routine
Reason For Exam: LEFT URETERAL STONE
RF Fluoroscopy, C-arm Routine
12/07/23 14:15
Dexamethasone Sod Phosphate [Decadron] 20 mg .ROUTE .STK-MED ONE
Ketorolac [Toradol] 30 mg .ROUTE .STK-MED ONE
12/07/23 14:42
Phenazopyridine HCl [Pyridium] 100 mg .ROUTE .STK-MED ONE
Abnormal Lab Results
12/07/23 12/07/23
11:42 13:16
WBC 13.6 H 10^3/uL
(4.8-10.8)
MCV 79.8 L fL
(81.0-99.0)
MPV 10.8 H fL
(7.4-10.4)
Abs Immat Gran (auto) 0.1 H 10^3/uL
(0-0.05)
Absolute Neuts (auto) 11.0 H 10^3/uL
(1.4-6.5)
Absolute Monos (auto) 0.7 H 10^3/uL
(0.1-0.6)
Neutrophils % 81.0 H %
(42.2-75.2)
Lymphocytes % 11.0 L %
(20.5-51.1)
Glucose 105 H mg/dl
(70-99)
Urine Ketones 1+ A
(Negative)
Urine Nitrite (Reflex) Positive A
(Negative)
Urine Bilirubin 3+ A
(Negative)
Urine Urobilinogen 3+ A
(Neg - 1+)
Urine RBC 3-6 A /HPF
(0-2)
Urine Bacteria (Reflex) Moderate A
(Negative)
12/07/23 11:42
12/07/23 11:42
Vital Signs
Initial and Last Documented VS:
Initial Vital Signs
Temp Pulse Resp BP Pulse Ox
97.6 F 66 18 138/93 100
12/07/23 10:59 12/07/23 10:59 12/07/23 10:59 12/07/23 10:59 12/07/23 10:59
Last Documented Vital Signs
Temp Pulse Resp BP Pulse Ox
98.0 F 97 14 112/57 99
12/07/23 15:01 12/07/23 15:01 12/07/23 15:01 12/07/23 14:45 12/07/23 15:01
MDM/Problems Addressed
Differential Diagnosis Includes:
Very high suspicion for kidney stone. Doubt infectious issue. Workup in progress. Discussed with urology. Discussed radiation with patient and mom.
*Radiology
Radiology exam reviewed: radiology read reviewed (2 mm stone left UVJ tiny 1 mm stone in the lower pole of the right kidney)
*Pulse Oximetry
Patient hypoxic: no
*Critical Care Note
Total Time (30-74mins, 75-104mins- exclusive of procedures): Not Applicable
Data Reviewed
Review of Other/Old Records Reveals: Labs, Records, Radiology Studies and Operative Reports
Update Note
Update Note:
Patient discussed with urology and will go to the operating room. Await urinalysis. Does have a leukocytosis however this likely is reactive. She has no medical findings at this time to support an infected stone. We are however waiting for the
urinalysis
ED Attending Note
-
Portions of this chart may have been created with voice recognition software.� Occasional wrong word or��sound alike� substitutions may have occurred due to the inherent limitations of voice recognition software.
Discharge Plan
Departure
Patient Disposition: Admit
Date of Disposition: 12/07/23
Time of Disposition: 13:11
Admit to: OR
Presentation/result/management discussed w/ accepting MD/DO: Urology
Discharge Problem:
Obstructing left kidney stone
Interventions
Interventions:
*Risk Screen - Suicide Last Done: 12/07/23 11:19
*General Assessment Last Done: 12/07/23 11:19
*Neglect/Abuse Screening Last Done: 12/07/23 11:19
*ED COVID-19 Vaccine History Last Done: 12/07/23 11:19
*Nursing Disposition Last Done: 12/07/23 13:32
ZR-Wuaeww-Emrxbfzhgt Assessment Last Done: 12/07/23 11:21
ED-Female Genitourinary Assessment Last Done: 12/07/23 11:21
Discharge Date and Time
Discharge Date/Time: 12/07/23 13:33
[2023-12-07 11:50] LABS: % Basophils 0.4 % (0-2); % Eosinophils 2.4 % (0-6); % Immature Granulocytes 0.4 % (0-0.5); % Monocytes 4.8 % (1.7-9.3); Absolute Basophils 0.1 10^3/uL (0-0.2); Absolute Eosinophils 0.3 10^3/uL (0-0.7); Absolute Immature Granulocytes 0.1 10^3/uL (0-0.05); Absolute Lymphocytes 1.5 10^3/uL (1.2-3.4); Absolute Monocytes 0.7 10^3/uL (0.1-0.6); Hemoglobin 13.6 g/dL (12.0-16.0); Mean Corp Hgb Conc. 34.9 g/dL (33.0-37.0); Mean Corpuscular Hgb 27.8 pg (27.0-31.0); Mean Corpuscular Volume 79.8 fL (81.0-99.0); Mean Platelet Volume 10.8 fL (7.4-10.4); Nucleated Red Blood Cells % 0 %; Platelet Count 273 10^3/uL (130-400); Red Blood Cell Count 4.89 10^6/uL (4.20-5.40); Red Cell Dist. Width 12.3 % (11.5-14.5); White Blood Cell Count 13.6 10^3/uL (4.8-10.8)
[2023-12-07] MEDS: ZOFRAN 4 MG IV (11:53)
[2023-12-07 12:13] LABS: Blood Urea Nitrogen 15 mg/dl (7-17); Calcium 9.6 mg/dl (8.4-10.2); Carbon Dioxide 22 mmol/L (22-30); Chloride 105 mmol/L (98-107); Estimated Creatinine Clearance 113 ml/min; Glucose 105 mg/dl (70-99); Potassium 4.4 mmol/L (3.5-5.1); Sodium 139 mmol/L (135-145); eGFR > 60.00
[2023-12-07 12:21] LABS: HCG, Serum Qualitative Screen Negative
[2023-12-07] MEDS: OFIRMEV 100 IV (12:25)
--- NOTE | 2023-12-07 12:50 | HP.FOC2 ---
Focused History & Physical
Chief Complaint
HPI:
Chief Complaint:
stone
HPI / Indication for Planned Procedure:
pt presents with continued and unrelenting left flank pain and urgency and frequency
ct confirms suspect left ureteral stone
to OR for ureteroscopy/stone manipulation and stent
Relevant Past Medical History: Other (stone)
Relevant Social History: Negative
Relevant Family History: Negative
Relevant Past Surgical History: Positive for (ureteroscopy on the right side)
Review of Systems
Review of Pertinent Systems: All Systems Negative Except for the Following Positives (flank pain and nausea)
Medication
See Medication form for detailed medications: Yes
Medication List (including Herbals & OTC):
ibuprofen 200 mg tablet 400 mg PO BIDPRN PRN mild pain 12/07/23
loratadine 10 mg tablet (Claritin) 10 mg PO DAILYPRN PRN allergies 12/07/23
nitrofurantoin monohydrate/macrocrystals 100 mg capsule 100 mg PO BID 12/07/23
phenazopyridine 95 mg tablet 95 mg PO TIDPRN PRN bladder issues 12/07/23
risankizumab-rzaa 150 mg/mL subcutaneous pen injector (Skyrizi) 150 mg SC Q12W 12/07/23
tamsulosin 0.4 mg capsule 0.4 mg PO DAILY 12/07/23
tramadol 50 mg tablet 50 mg PO Q8HPRN PRN moderate Pain 12/07/23
Medications Reviewed: Yes
Allergies and Reactions
Patient has Allergies: Yes
Noted Allergies and Reactions:
Allergy/AdvReac Type Severity Reaction Status Date / Time
Sulfa (Sulfonamide Allergy Pharmacy Verified 12/07/23 11:20
Antibiotics) to Review
Pertinent Physical Exam
All Other Systems: Negative
Head/Neck: Normal
Lungs: Normal
Heart: Normal
Abdomen: Normal
Extremities: Normal
Neurological: Normal
Diagnosis / Assessment
stone
Plan / Procedure
to OR for ureteroscopy
Anesthesia/Sedation to be done by Anesthesia Provider: Yes
[2023-12-07] MEDS: LEVAQUIN 100 IV (13:22)
[2023-12-07 13:26] LABS: Urine Albumin Trace (Neg - Trace); Urine Bilirubin 3+ (Negative); Urine Character Clear (Clear); Urine Glucose Negative (Negative); Urine Ketone 1+ (Negative); Urine Leukocyte Negative (Negative); Urine Nitrite Positive (Negative); Urine Occult Blood Negative (Negative); Urine Urobilinogen 3+ (Neg - 1+)
[2023-12-07 13:51] LABS: Urine Color Orange
[2023-12-07 13:52] LABS: Urine Squamous Cell 16-20 /LPF (Few)
[2023-12-07 13:54] LABS: Urine Bacteria Moderate (Negative)
[2023-12-07] MEDS: Pyridium 100 MG PO (15:39)
== END ==
LOC: EMR 10:54 → PACU 13:39
PROVIDERS: ATTENDING PHYSICIAN Emergency Medicine; FAMILY PHYSICIAN Nurse Practitioner Adult Health
DX: N20.1 Calculus of ureter (principal); Z87.442 Personal history of urinary calculi
CPT/HCPCS: 52352; 52332; 74018; 74176; 76000; 80048; 81003; 81015; 84703; 85025; 87077; 87086; 96361; 96374; 96375; 99285; C1758; C1894; C2617

== ENCOUNTER → 2024-07-14 11:32 | Outpatient (REF) | payer BC, SELFPAY | LOC: HWRAD 11:32 | PROVIDERS: ATTENDING PHYSICIAN Surgery; FAMILY PHYSICIAN Nurse Practitioner Adult Health | DX: N20.0 Calculus of kidney (principal) | CPT/HCPCS: 74018 ==

== ENCOUNTER 2024-08-14 09:06 | Emergency (ER) | payer BC, SELFPAY ==
[2024-08-14 09:19] VITALS: BP 114/86
[2024-08-14 09:38] LABS: % Basophils 0.5 % (0-2); % Eosinophils 1.5 % (0-6); % Immature Granulocytes 0.4 % (0-0.5); % Lymphocytes 11.5 % (20.5-51.1); % Monocytes 5.9 % (1.7-9.3); % Neutrophils 80.2 % (42.2-75.2); Absolute Basophils 0.1 10^3/uL (0-0.2); Absolute Eosinophils 0.2 10^3/uL (0-0.7); Absolute Lymphocytes 1.3 10^3/uL (1.2-3.4); Absolute Monocytes 0.7 10^3/uL (0.1-0.6); Absolute Neutrophils 8.8 10^3/uL (1.4-6.5); Hematocrit 46.6 % (37.0-47.0); Hemoglobin 15.6 g/dL (12.0-16.0); Mean Corp Hgb Conc. 33.5 g/dL (33.0-37.0); Mean Corpuscular Hgb 27.4 pg (27.0-31.0); Mean Corpuscular Volume 81.9 fL (81.0-99.0); Mean Platelet Volume 10.2 fL (7.4-10.4); Nucleated Red Blood Cells % 0 %; Platelet Count 274 10^3/uL (130-400); Red Blood Cell Count 5.69 10^6/uL (4.20-5.40); Red Cell Dist. Width 12.2 % (11.5-14.5); White Blood Cell Count 10.9 10^3/uL (4.8-10.8)
[2024-08-14 09:51] LABS: HCG, Serum Qualitative Screen Negative
[2024-08-14 09:53] LABS: COVID-19 Antigen Negative (Negative)
[2024-08-14 10:00] LABS: ALT (SGPT) 26 U/L (0-35); AST (SGOT) 24 U/L (14-36); Albumin 4.8 g/dl (3.5-5.0); Alkaline Phosphatase 60 U/L (38-126); Blood Urea Nitrogen 10 mg/dl (7-17); Carbon Dioxide 24 mmol/L (22-30); Chloride 108 mmol/L (98-107); Glucose 121 mg/dl (70-99); Sodium 143 mmol/L (135-145); Total Protein 8.1 g/dl (6.3-8.2); eGFR > 60.00
--- NOTE | 2024-08-14 10:09 | ED.GENMED ---
History of Present Illness
General
Chief Complaint: Abdominal Symptoms
Time Seen by Provider: 08/14/24 09:51
History of Present Illness
History of Present Illness:
24-year-old female presents to the emergency department for evaluation of persistent nausea, vomiting, and diarrhea as well as low-grade fever for the past 2 to 3 days. [place] improved yesterday before worsening again today. Notes that she ate a
lobster roll the day prior to onset of symptoms but denies any other suspicious or concerning food intake. Has not been able to tolerate p.o. fluids today. Denies any significant abdominal pain. Prior history of appendectomy, no other abdominal
surgeries. Denies hematemesis or hematochezia
Past History
Past History
ED Past Medical History: Other (Kidney stones/psoriasis)
ED Past Surgical History: Orthopedic and Urological
Social History
Tobacco: Non-smoker
Review of Systems
Review of Systems
Allergies reviewed?: Yes
All Other Systems: ROS reviewed and negative except as documented in HPI and ROS
Phy Exam
Physical Exam
Physical Exam:
GEN: Well appearing, NAD, WDWN
HEENT: Oral mucosa moist, no scleral icterus
Cardiac: Regular rate and rhythm, no murmurs
Lung: No respiratory distress, no tachypnea, lungs clear to auscultation bilaterally
Abdomen: Soft, grossly nontender, no rigidity
MSK: No gross deformity or injuries
Skin: Good color, no pallor or jaundice, no rashes
Neuro: AO x3, moves all extremities freely
Psych: Calm, cooperative
Course
Orders/Labs/Results
Orders:
Orders
08/14/24 09:23
Test Result ONCE
08/14/24 09:30
CMP [Comprehensive Metabolic Panel] Urgent
COVID-19 Antigen Urgent
Source: Nasal Swab
Complete Blood Count/With Diff Urgent
HCG, Serum Qualitative Screen Urgent
INF RAPID [Influenza A+B Rapid Molecular] Urgent
NISHI Source: Nasal Swab
Specimen Description:
08/14/24 10:09
Lactated Ringers [Lr] 1,000 ml IV BOLUS
Ondansetron Injectable [Zofran] 4 mg IV NOW STA
08/14/24 11:57
Metoclopramide [Reglan] 10 mg IV NOW STA
08/14/24 14:03
Stool Culture Urgent
NISHI Source: Feces/Stool
Specimen Description:
Date Specimen was Collected: 08/14/24
Time Specimen was Collected: 14:03
Abnormal Lab Results
08/14/24
09:30
WBC 10.9 H 10^3/uL
(4.8-10.8)
RBC 5.69 H 10^6/uL
(4.20-5.40)
Absolute Neuts (auto) 8.8 H 10^3/uL
(1.4-6.5)
Absolute Monos (auto) 0.7 H 10^3/uL
(0.1-0.6)
Neutrophils % 80.2 H %
(42.2-75.2)
Lymphocytes % 11.5 L %
(20.5-51.1)
Chloride 108 H mmol/L
(98-107)
Glucose 121 H mg/dl
(70-99)
08/14/24 09:30
08/14/24 10:09
Vital Signs
Initial and Last Documented VS:
Initial Vital Signs
Temp Pulse Resp BP Pulse Ox
97.8 F 87 16 114/86 98
08/14/24 09:19 08/14/24 09:19 08/14/24 09:19 08/14/24 09:19 08/14/24 09:19
Last Documented Vital Signs
Temp Pulse Resp BP Pulse Ox
97.8 F 80 15 109/71 99
08/14/24 09:19 08/14/24 12:45 08/14/24 12:45 08/14/24 12:00 08/14/24 12:45
MDM/Problems Addressed
MDM/Problems Addressed:
Likely self-limited viral syndrome however given her use of an immune modulator for psoriasis stool cultures are sent for completeness, she has a benign abdominal exam and there is no indication for CT. Labs are reassuring, tolerating p.o. fluids
at time of discharge after IV fluids and antiemetics. Discussed supportive care
*Pulse Oximetry
Patient hypoxic: no
*Critical Care Note
Total Time (30-74mins, 75-104mins- exclusive of procedures): Not Applicable
ED Attending Note
-
Portions of this chart may have been created with voice recognition software.� Occasional wrong word or��sound alike� substitutions may have occurred due to the inherent limitations of voice recognition software.
Discharge Plan
Departure
Patient Disposition: Home (Routine Discharge)
Date of Disposition: 08/14/24
Time of Disposition: 13:20
Patient with high blood pressure during this ER visit?: No
Discharge Problem:
Gastroenteritis
Instructions: Diarrhea in teens and adults
Prescriptions:
New
metoclopramide HCl 10 mg tablet
10 mg PO Q8H PRN (Reason: nausea and vomiting) Qty: 10 0RF
No Action
tamsulosin 0.4 mg Capsule
0.4 mg PO DAILY
phenazopyridine [Azo] 95 mg Tablet
95 mg PO TIDPRN PRN (Reason: bladder issues)
ibuprofen 200 mg Tablet
400 mg PO BIDPRN PRN (Reason: mild pain)
loratadine [Claritin] 10 mg Tablet
10 mg PO DAILYPRN PRN (Reason: allergies)
nitrofurantoin monohyd/m-cryst 100 mg Capsule
100 mg PO BID
Patient Comments:
12/07/23: filled 12/04/23, to take for 5 days
Skyrizi 150 mg/mL Pen Injector
150 mg SC Q12W
tramadol 50 mg tablet
50 mg PO Q8HPRN PRN (Reason: moderate Pain)
Referrals:
Cori Caro CRNP [Family Provider, Internal Medicine]
Stand Alone Forms: Return to Work
Interventions
Interventions:
*Risk Screen - Suicide Last Done: 08/14/24 09:19
*General Assessment Last Done: 08/14/24 14:40
*Neglect/Abuse Screening Last Done: 08/14/24 09:19
*ED- Fall Risk Assessment Last Done: 08/14/24 14:40
*ED COVID-19 Vaccine History Last Done: 08/14/24 14:40
*Nursing Disposition Last Done: 08/14/24 14:40
MI-Erbipt-Xgehovabey Assessment Last Done: 08/14/24 13:35
Discharge Date and Time
Discharge Date/Time: 08/14/24 14:46
Print Language: [place]
[2024-08-14 10:19] VITALS: BP 110/73
[2024-08-14] MEDS: LR 1000 IV (10:38)
[2024-08-14 11:00] VITALS: BP 109/71
[2024-08-14] MEDS: ZOFRAN 4 MG IV (11:14)
[2024-08-14 11:56] VITALS: BP 99/59
[2024-08-14 12:00] VITALS: BP 109/71
[2024-08-14] MEDS: REGLAN 10 MG IV (12:08)
== END 2024-08-14 14:46 | disposition home or self-care (01) ==
LOC: EMR 09:06
PROVIDERS: Emergency Medicine; EMERGENCY PHYSICIAN Emergency Medicine; FAMILY PHYSICIAN Nurse Practitioner Adult Health
DX: K52.9 Noninfective gastroenteritis and colitis, unspecified (principal); R50.9 Fever, unspecified; Z11.52 Encounter for screening for COVID-19; L40.9 Psoriasis, unspecified; Z87.442 Personal history of urinary calculi; Z88.2 Allergy status to sulfonamides
CPT/HCPCS: 99284; 96374; 96375; 96361; 80053; 84703; 85025; 87045; 87046; 87427; 87502; 87811